=== PATIENT | female | born 1975 | race Caucasian/White ===

== ENCOUNTER 2017-01-25 11:32 | Emergency (ER) | payer BC ==
[2017-01-25] MEDS ORDERED: Diazepam TAB(*) 5 MG PO ONE (12:02)
[2017-01-25] MEDS ORDERED: Ibuprofen TAB* 800 MG PO ONE (12:02)
--- NOTE | 2017-01-25 13:39 | ED ---
Back Pain - History of Current Complaint Chief Complaint: EDBackInjuryPain Stated Complaint: BACK PAIN Time Seen by Provider: 01/25/17 12:01 Hx Last Menstrual Period: last week; was normal Pain Intensity: 10 - Allergies/Home Medications Allergies/Adverse Reactions: Allergies Allergy/AdvReac Type Severity Reaction Status Date / Time Codeine Allergy Severe Hallucinati Verified 11/13/15 08:11 ons PMH/Surg Hx/FS Hx/Imm Hx Endocrine/Hematology History: Denies: Hx Anticoagulant Therapy, Hx Diabetes, Hx Thyroid Disease Cardiovascular History: Denies: Hx Congestive Heart Failure, Hx Hypertension, Hx Pacemaker/ICD Respiratory History: Denies: Hx Asthma, Hx Chronic Obstructive Pulmonary Disease (COPD) History: Denies: Hx Dialysis, Hx Renal Disease Sensory History: Reports: Hx Contacts or Glasses - usually wears glasses Denies: Hx Hearing Aid Opthamlomology History: Reports: Hx Contacts or Glasses - usually wears glasses Neurological History: Denies: Hx Dementia, Hx Seizures Psychiatric History: Denies: Hx Panic Disorder, Hx Substance Abuse - Cancer History Cancer Type, Location and Year: back problems - Surgical History Surgery Procedure, Year, and Place: GALLBLADDER 1998. TUBAL LIGATION 2006 Hx Anesthesia Reactions: Yes - cholecystectomy - Immunization History Date of Tetanus Vaccine: unknown Infectious Disease History: No Infectious Disease History: Denies: Hx Hepatitis, Hx Human Immunodeficiency Virus (HIV), Traveled Outside the [place] in Last 30 Days - Family History Known Family History: Positive: Unknown - Social History Alcohol Use: None Substance Use Type: Reports: None Smoking Status (MU): Light Every Day Tobacco Smoker Type: Cigarettes Physical Exam Vital Signs On Initial Exam: Initial Vitals Temp Pulse Resp BP Pulse Ox 97.7 F 94 20 131/117 99 01/25/17 11:41 01/25/17 11:41 01/25/17 11:41 01/25/17 11:41 01/25/17 11:41 Diagnostics - Vital Signs Vital Signs Temp Pulse Resp BP Pulse Ox 01/25/17 12:16 16 01/25/17 11:43 98.1 F 91 20 123/80 100 01/25/17 11:41 97.7 F 94 20 131/117 99 - Laboratory Lab Statement: Any lab studies that have been ordered have been reviewed, and results considered in the medical decision making process.
[2017-01-25] MEDS ORDERED: Acetaminophen TAB* 325 MG PO ONE (13:49)
--- NOTE | 2017-01-25 14:31 | RAD ---
INDICATION: Back pain with radiculopathy. COMPARISON: CT October 24, 2015 TECHNIQUE: Noncontrast axial source images was performed from the thoracolumbar junction to the sacrum. Coronal and and sagittal reformatted images were generated. FINDINGS: Vertebrae: There is no fracture or acute focal bony lesion. Alignment: The lumbar vertebrae are normally aligned. Central Canal: There are no significant CT abnormalities of the central canal or foramina. There is probably minor bulging at the lower 3 lumbar levels. The significance, if any, requires correlation with the clinical exam. MR imaging is a more sensitive method to evaluate the canal and foramina. Intervertebral disc spaces: The disc spaces are maintained. Soft tissues: The paravertebral soft tissues are normal. Other: None IMPRESSION: NO SIGNIFICANT CT ABNORMALITIES (SEE ABOVE).
[2017-01-25] MEDS ORDERED: predniSONE TAB* 20 MG PO ONE ×2 (14:56→14:57)
[2017-01-25 15:15] VITALS: BP 112/69
== END 2017-01-25 15:14 | disposition home or self-care (01) ==
LOC: ED 11:32
DX: M54.9 Dorsalgia, unspecified (principal); F17.210 Nicotine dependence, cigarettes, uncomplicated
CPT/HCPCS: 72131; 99282; A9270-GY; J7512